=== PATIENT | female | born 1995 | race Caucasian/White ===

== ENCOUNTER 2016-08-08 14:31 | Emergency (ER) | payer OTHER ==
[~2016-08-08] VITALS: Ht 154.9 cm; Wt 48.5 kg
[2016-08-08 14:33] VITALS: BP 131/65
== END 2016-08-08 15:54 | disposition home or self-care (01) ==
LOC: ED 14:31
PROC: 2W3FX1Z Immobilization of Left Hand using Splint (ICD-10-PCS; principal; 2016-08-08)
DX: S62.92XA Unspecified fracture of left hand, initial encounter for closed fracture (principal); R03.0 Elevated blood-pressure reading, without diagnosis of hypertension; W01.0XXA Fall on same level from slipping, tripping and stumbling without subsequent striking against object, initial encounter; Y92.9 Unspecified place or not applicable